=== PATIENT | male | born 1980 | race Caucasian/White ===

== ENCOUNTER 2020-07-02 00:45 | Inpatient (IN) | payer MEDICARE, MEDICAID ==
--- NOTE | 2020-07-02 01:32 | ED ---
General Adult HPI - General Chief complaint: Back Pain/Injury Stated complaint: Foot and back pain Time Seen by Provider: 07/02/20 01:00 Source: patient Mode of arrival: ambulatory Limitations: altered mental status (Disorganized thought processes) - History of Present Illness Initial comments: This patient is a 40-year-old man who initially states that he is here regarding back pain, but then has a very difficult time giving coherent history. He went on to describe taking insulation out of his home, also his travels across [place]. When specifically questioned about his back pain, he states that he has had years of back pain. He denies any recent injury. He states that naproxen usually helps him. He denies any difficulty with walking. Denies any loss of bowel or bladder function. The patient went on to describe history of psychiatric problems. He seems to be out of some of his medications. History is limited as the patient thought pr ocesses very disorganized -: unknown Location: back Radiation: non-radiation Improves with: none Worsens with: none Associated Symptoms: denies other symptoms - Related Data Previous Rx's Medication Instructions Recorded Nicotine 14Mg/24Hr Patch [Habitrol] 1 patch TRANSDERM DAILY #28 patch 07/05/20 risperiDONE [RisperDAL] 1 mg PO BID #60 tab 07/05/20 Allergies Allergy/AdvReac Type Severity Reaction Status Date / Time mirtazapine [From Remeron] Allergy Rash/Hives Verified 07/03/20 19:58 Review of Systems ROS Statement: Those systems with pertinent positive or pertinent negative responses have been documented in the HPI. ROS Other: All systems not noted in ROS Statement are negative. Constitutional: Denies: fever, weakness Eyes: Denies: vision change Respiratory: Denies: cough, dyspnea Cardiovascular: Denies: chest pain Gastrointestinal: Denies: abdominal pain, vomiting Musculoskeletal: Reports: as per HPI, back pain Skin: Denies: rash Neurological: Denies: headache Psychiatric: Denies: homicidal thoughts, suicidal thoughts Past Medical History Past Medical History: Unable to Obtain History of Any Multi-Drug Resistant Organisms: None Reported Past Surgical History: Appendectomy Past Psychological History: ADD/ADHD, PTSD Smoking Status: Current every day smoker Past Alcohol Use History: Occasional Past Drug Use History: None Reported - Past Family History family Family Medical History: No Reported History General Exam Limitations: no limitations General appearance: alert, in no apparent distress, other (Patient will mild tremor) Head exam: Present: atraumatic, normocephalic Eye exam: Present: normal appearance. Absent: scleral icterus, conjunctival injection Neck exam: Present: normal inspection, full ROM. Absent: tenderness Respiratory exam: Present: normal lung sounds bilaterally. Absent: respiratory distress, wheezes, rales, rhonchi, stridor Cardiovascular Exam: Present: regular rate, normal rhythm, normal heart sounds. Absent: systolic murmur, diastolic murmur, rubs, gallop GI/Abdominal exam: Present: soft. Absent: distended, tenderness, guarding, rebound, rigid Extremities exam: Present: normal inspection, normal capillary refill Back exam: Present: normal inspection. Absent: CVA tenderness (R), CVA tenderness (L), paraspinal tenderness, vertebral tenderness Neurological exam: Present: alert, oriented X3, CN II-XII intact. Absent: motor sensory deficit Psychiatric exam: Present: manic. Absent: depressed, agitated, anxious, homicidal ideation, suicidal ideation Skin exam: Present: warm, dry, intact, normal color. Absent: rash Course Vital Signs 07/02/20 00:53 Temperature 97.4 F L Pulse Rate 90 Respiratory 18 Rate Blood Pressure 164/100 O2 Sat by Pulse 98 Oximetry Medical Decision Making - Lab Data Result diagrams: 07/02/20 08:10 07/02/20 08:10 Lab Results 07/02/20 07/02/20 Range/Units 01:49 03:41 Urine Opiates Screen Not Detected (NotDetected) Ur Oxycodone Screen Not Detected (NotDetected) Urine Methadone Screen Not Detected (NotDetected) Ur Propoxyphene Screen Not Detected (NotDetected) Ur Barbiturates Screen Not Detected (NotDetected) U Tricyclic Antidepress Detected H (NotDetected) Ur Phencyclidine Scrn Not Detected (NotDetected) Ur Amphetamines Screen Detected H (NotDetected) U Methamphetamines Scrn Detected H (NotDetected) U Benzodiazepines Scrn Not Detected (NotDetected) Urine Cocaine Screen Detected H (NotDetected) U Marijuana (THC) Screen Detected H (NotDetected) Coronavirus (PCR) Not Detected (Not Detectd) Disposition Clinical Impression: 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
[2020-07-02 02:07] LABS: Amphetamine Screen,Urine Detected (NotDetected); Barbiturate Screen,Urine Not Detected (NotDetected); Benzodiazepines Screen,Urine Not Detected (NotDetected); Cocaine Screen,Urine Detected (NotDetected); Methadone Screen, Urine Not Detected (NotDetected); Opiate Screen,Urine Not Detected (NotDetected); Oxycodone Screen, Urine Not Detected (NotDetected); Phencyclidine Screen,Urine Not Detected (NotDetected); Tricyclic Antidepressant,Urine Detected (NotDetected); Urn Cannabinoid Scrn Detected (NotDetected)
[2020-07-02] MEDS ORDERED: MAGNESIUM HYDROXIDE 2,400 MG/10 ML CUP PO PRN (05:09)
[2020-07-02] MEDS ORDERED: MAG HYDROX/AL HYDROX/SIMETH 30 ML CUP PO PRN (05:09)
[2020-07-02] MEDS ORDERED: LORazepam 2 MG/ML INJ IM PRN (05:13)
[2020-07-02] MEDS ORDERED: haloperidoL 5 MG TAB PO PRN (05:13)
[2020-07-02] MEDS ORDERED: HALOPERIDOL LACTATE 5 MG/ML 1 ML VIAL IM PRN (05:13)
[2020-07-02 08:45] LABS: Basophils % (A) 0 %; Eosinophils # (A) 0.1 k/uL (0-0.7); Eosinophils % (A) 1 %; HCT 42.2 % (39.0-53.0); HGB 14.7 gm/dL (13.0-17.5); Lymphocytes % (A) 20 %; MCH 30.6 pg (25.0-35.0); MCHC 34.7 g/dL (31.0-37.0); MCV 88.2 fL (80.0-100.0); Mean Platelet Volume 7.5; Monocytes # (A) 0.9 k/uL (0-1.0); Monocytes % (A) 9 %; Neutrophils # (A) 6.8 k/uL (1.3-7.7); Neutrophils % (A) 67 %; Platelet Count 252 k/uL (150-450); RBC 4.78 m/uL (4.30-5.90); RDW 12.9 % (11.5-15.5); WBC 10.1 k/uL (3.8-10.6)
[2020-07-02 08:55] LABS: ALT 175 U/L (4-49); AST 96 U/L (17-59); African American GFR (CKD) >90 (>60 ml/min/1.73 sqM); Albumin 4.3 g/dL (3.5-5.0); Alkaline Phosphatase 83 U/L (38-126); Anion Gap 8 mmol/L; Blood Urea Nitrogen 12 mg/dL (9-20); Calcium 9.3 mg/dL (8.4-10.2); Carbon Dioxide 27 mmol/L (22-30); Chloride 101 mmol/L (98-107); Cholesterol 154 mg/dL (<200); Glucose 94 mg/dL (74-99); HDL Cholesterol 47 mg/dL (40-60); LDL Cholesterol,Calculated 98 mg/dL (0-99); Non-African American GFR(CKD) >90 (>60 ml/min/1.73 sqM); Potassium 3.5 mmol/L (3.5-5.1); Sodium 136 mmol/L (137-145); Total Bilirubin 0.9 mg/dL (0.2-1.3); Total Protein 7.5 g/dL (6.3-8.2); Triglycerides 46 mg/dL (<150)
[2020-07-02] MEDS: NICOTINE 14MG/24HR PATCH TRANSDERM SCH (09:01)
[2020-07-02] MEDS ORDERED: LORazepam 1 MG TAB PO PRN (11:06)
[2020-07-02] MEDS: ACETAMINOPHEN TAB 325 MG TAB PO PRN ×2 (11:12→17:00)
--- NOTE | 2020-07-02 11:14 | P.HP ---
Psychiatric H&P - . H&P Date: 07/02/20 History & Physical: Allergies Allergy/AdvReac Type Severity Reaction Status Date / Time No Known Allergies Allergy Verified 07/02/20 06:03 Vital Signs Temp 97.8 F 07/02/20 05:26 Pulse 91 07/02/20 05:26 Resp 18 07/02/20 05:26 BP 120/83 07/02/20 05:26 Pulse Ox 95 07/02/20 05:26 Intake & Output 07/01/20 07/02/20 07/02/20 18:59 06:59 18:59 Weight 86.9 kg Laboratory Last Values WBC 10.1 k/uL (3.8-10.6) 07/02/20 08:10 RBC 4.78 m/uL (4.30-5.90) 07/02/20 08:10 Hgb 14.7 gm/dL (13.0-17.5) 07/02/20 08:10 Hct 42.2 % (39.0-53.0) 07/02/20 08:10 MCV 88.2 fL (80.0-100.0) 07/02/20 08:10 MCH 30.6 pg (25.0-35.0) 07/02/20 08:10 MCHC 34.7 g/dL (31.0-37.0) 07/02/20 08:10 RDW 12.9 % (11.5-15.5) 07/02/20 08:10 Plt Count 252 k/uL (150-450) 07/02/20 08:10 MPV 7.5 07/02/20 08:10 Neutrophils % 67 % 07/02/20 08:10 Lymphocytes % 20 % 07/02/20 08:10 Monocytes % 9 % 07/02/20 08:10 Eosinophils % 1 % 07/02/20 08:10 Basophils % 0 % 07/02/20 08:10 Neutrophils # 6.8 k/uL (1.3-7.7) 07/02/20 08:10 Lymphocytes # 2.0 k/uL (1.0-4.8) 07/02/20 08:10 Monocytes # 0.9 k/uL (0-1.0) 07/02/20 08:10 Eosinophils # 0.1 k/uL (0-0.7) 07/02/20 08:10 Basophils # 0.0 k/uL (0-0.2) 07/02/20 08:10 Sodium 136 mmol/L (137-145) L 07/02/20 08:10 Potassium 3.5 mmol/L (3.5-5.1) 07/02/20 08:10 Chloride 101 mmol/L (98-107) 07/02/20 08:10 Carbon Dioxide 27 mmol/L (22-30) 07/02/20 08:10 Anion Gap 8 mmol/L 07/02/20 08:10 BUN 12 mg/dL (9-20) 07/02/20 08:10 Creatinine 0.66 mg/dL (0.66-1.25) 07/02/20 08:10 Est GFR (CKD-EPI)AfAm >90 (>60 ml/min/1.73 sqM) 07/02/20 08:10 Est GFR (CKD-EPI)NonAf >90 (>60 ml/min/1.73 sqM) 07/02/20 08:10 Glucose 94 mg/dL (74-99) 07/02/20 08:10 Calcium 9.3 mg/dL (8.4-10.2) 07/02/20 08:10 Total Bilirubin 0.9 mg/dL (0.2-1.3) 07/02/20 08:10 AST 96 U/L (17-59) H 07/02/20 08:10 ALT 175 U/L (4-49) H 07/02/20 08:10 Alkaline Phosphatase 83 U/L (38-126) 07/02/20 08:10 Total Protein 7.5 g/dL (6.3-8.2) 07/02/20 08:10 Albumin 4.3 g/dL (3.5-5.0) 07/02/20 08:10 Triglycerides 46 mg/dL (<150) 07/02/20 08:10 Cholesterol 154 mg/dL (<200) 07/02/20 08:10 LDL Cholesterol, Calc 98 mg/dL (0-99) 07/02/20 08:10 HDL Cholesterol 47 mg/dL (40-60) 07/02/20 08:10 TSH 2.410 mIU/L (0.465-4.680) 07/02/20 08:10 Urine Opiates Screen Not Detected (NotDetected) 07/02/20 01:49 Ur Oxycodone Screen Not Detected (NotDetected) 07/02/20 01:49 Urine Methadone Screen Not Detected (NotDetected) 07/02/20 01:49 Ur Propoxyphene Screen Not Detected (NotDetected) 07/02/20 01:49 Ur Barbiturates Screen Not Detected (NotDetected) 07/02/20 01:49 U Tricyclic Antidepress Detected (NotDetected) H 07/02/20 01:49 Ur Phencyclidine Scrn Not Detected (NotDetected) 07/02/20 01:49 Ur Amphetamines Screen Detected (NotDetected) H 07/02/20 01:49 U Methamphetamines Scrn Detected (NotDetected) H 07/02/20 01:49 U Benzodiazepines Scrn Not Detected (NotDetected) 07/02/20 01:49 Urine Cocaine Screen Detected (NotDetected) H 07/02/20 01:49 U Marijuana (THC) Screen Detected (NotDetected) H 07/02/20 01:49 Coronavirus (PCR) Not Detected (Not Detectd) 07/02/20 03:41 07/02/20 11:04 IDENTIFYING DATA: Patient is a 40-year-old male who presented with psychotic and bizarre behavior. HPI: Patient presented to the hospital on 07/02/2020 with a chief complaint of back pain but was presenting with gross disorganization, delusional thoughts, and bizarre behaviors. The patient has been noted to be wandering around the city making incoherent statements and acting bizarrely. The patient is unable to recall events leading to this hospitalization at this time. He states that he came to the hospital for back pain. He is a very poor historian and provides inconsistent and bizarre answers to questioning. When evaluated by recreational therapy, patient stated that his goals were "potato." On evaluation by this provider, the patient appears to be incoherent at times and does not answer any questions in a linear or logical fashion. He is currently denying any suicidal or homicidal ideation, intention, and/or plan. He denies any auditory or visual hallucinations. He is denying any paranoia or overt delusions. He is denying any significant history of bipolar disorder at this time. He reports no racing thoughts, mood swings, or increased goal-directed behavior. When inquiring about his substance abuse, the patient denies any illicit drug use despite his drug screens, and back positive for amphetamines, methamphetamines, cocaine, and marijuana. The patient is unable to provide any clear history for how this is possible. He does state that he drinks 1 L of hard liquor but does not recall when his last drink was. He does report 3 packs per day of tobacco use. PAST PSYCHIATRIC HISTORY: Patient states that he has a previous diagnosis of ADHD and as per chart review, PTSD. Patient is unable to recall any prior psychiatric medications. Patient denies any previous psychiatric hospitalizations. She does state that he follows up with a doctor in the outpatient setting but is unable to verbalize and name. Patient denies any history of suicide attempts in the past. PMH: The patient denies any past medical history. ALLERGIES: NO KNOWN DRUG ALLERGIES CHEMICAL DEPENDENCY HISTORY: The patient reports smoking 3 packs per day. He admits to alcohol use, and approximates one liter of alcohol but is unable to state how often he drinks. He denies any illicit drug use although his urinary drug screen came back positive for amphetamines, methamphetamines, marijuana, and cocaine. FAMILY PSYCHIATRIC/SUBSTANCE USE HISTORY: Unable to obtain SOCIAL HISTORY: The patient was able to provide . some social history but it should be noted that the patient does appear to be illogical at this time. The patient states that he lives in [place] and is attending college. 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 He states that he has 6 siblings and his mother and father are still alive and together. He reports living with his uncle. He does state that he is . He reports that he in 1993 which would make him 15 years old at the time. He denies any legal problems. MENTAL STATUS EXAM: General Appearance: Patient appears to be stated age appears intoxicated, but directable and attempts to cooperate. The patient is dressed in a hospital gown and appears disheveled. Behavior: Patient is seated without any agitated behavior. The patient is grossly disorganized and needs reorientation as to where to find his room. Speech: Patient's speech is slurred, incoherent at times, tangential. Mood/Affect: Patient reports their mood is "my back hurts." Affect is bizarre. Suicidality/Homicidality: Patient denies having any homicidal ideation intent or plan. Denies any suicidal ideations intent or plan Perceptions: Patient denies any visual hallucinations and denies any auditory hallucinations Though content/process: Grossly disorganized. Some bizarre thoughts. Memory and concentration: Grossly poor. Judgment and insight: poor STRENGTHS/WEAKNESSES: Unable to determine patient's strengths at this time. W eaknesses include substance abuse. INTELLECT: Unable to assess IMPRESSIONS: Acute psychosis - suspect secondary to substance abuse and intoxication Cannabis use disorder Methamphetamine abuse Cocaine abuse Nicotine dependence PLAN: -Patient is admitted under involuntary status to MHU for stabilization of psychiatric symptoms and safety. A second certification was completed and along with petition will be filed for court. -Medications : Will start patient on Risperdal 0.5 mg by mouth twice a day for psychosis -Ativan and Haldol PRN for agitation/aggression -Started thiamine, MVM for etoh use -CIWA protocol with Ativan PRN for ETOH withdrawal -Patient was counselled on substance abuse but denies he has substance use at this time. -Patient was informed of the risks, benefits and side effects of the medication and patient verbally consented to taking the medications. -Internal Medicine consult to perform medical evaluation and physical. -NRT - nicotine patch -SW on board for discharge planning. Encourage patient to participate in groups to work on coping skills. 07/02/20 11:14
[2020-07-02] MEDS: LORazepam 1 MG TAB PO PRN (12:04)
--- NOTE | 2020-07-02 20:02 | P.MDCNMH ---
History of Present Illness H&P Date: 07/02/20 Chief Complaint: medical eval 40 year old male with no reported past medical history patient unable to provide meaningful history , he mumbles most of the time, and tangential with his thoughts. he kept trying to interrupt interview as he is trying to go get snacks, or water. and I had to remind him that he can do that after the interview, he seemed disengaged and not interested in the interview he denies any medical concerns except for chronic low back pain of >2 years duration , non radiating pain , but he feels that sometimes he has difficulty walking , without giving further specific details when asked, again he seems unable to maintain his focus on one subject. he admits to polysubstance abuse, alcohol drinking on regular basis, and tobacco smoking he otherwise denies any suicidal or homicidal thoughts, he denies any fever, chills, URI symptoms , changes in his bowel habits, denies any GI symptoms, or urinary changes . Review of Systems Pertinent positives as noted in HPI. All other systems were reviewed and are neg ative Past Medical History Past Medical History: Unable to Obtain History of Any Multi-Drug Resistant Organisms: None Reported Past Surgical History: Appendectomy Past Psychological History: ADD/ADHD, PTSD Smoking Status: Current every day smoker Past Alcohol Use History: Occasional Past Drug Use History: None Reported - Past Family History family Family Medical History: No Reported History Medications and Allergies Allergies Allergy/AdvReac Type Severity Reaction Status Date / Time No Known Allergies Allergy Verified 07/02/20 06:03 Physical Exam Vitals: Vital Signs Temp Pulse Pulse Resp BP BP BP 07/02/20 16:58 116 H 126/63 07/02/20 12:03 124 H 110/57 07/02/20 11:15 97.7 F 127 H 18 95/58 07/02/20 05:26 97.8 F 91 18 120/83 07/02/20 00:53 97.4 F L 90 18 164/100 Pulse Ox 07/02/20 16:58 07/02/20 12:03 07/02/20 11:15 07/02/20 05:26 95 07/02/20 00:53 98 Intake and Output 07/02/20 07/02/20 07/02/20 06:59 14:59 22:59 Other: Weight 86.9 kg Constitutional: No acute distress, conversant, pleasant Eyes: Anicteric sclerae, moist conjunctiva, Pupils equal round reactive to light ENMT: NC/AT Oropharynx clear, no erythema, or exudates Neck: Supple, FROM, no masses, or JVD No carotid bruits No thyromegaly Lungs: Clear to auscultation Clear to percussion Normal respiratory effort, no accessory muscle use Cardiovascular: Heart regular in rate and rhythm, No murmurs, gallops, or rubs No peripheral edema Abdominal: Soft Nontender, no guarding, rebound or rigidity Abdomen moving with respiration Normoactive bowel sounds No hepatomegaly, No splenomegaly No palpable mass No abdominal wall hernia noted Skin: Normal temperature, tone, texture, turgor No induration No subcutaneous nodules No rash, lesions No ulcers Extremities: No digital cyanosis No clubbing Pedal pulses intact and symmetrical Radial pulses intact and symmetrical No calf tenderness Psychiatric: Alert and oriented to person, place and time Neuro Muscles Strength 5/5 in all 4 extremities Sensation to light touch grossly present throughout Cranial nerves II-XII grossly intact No focal sensory deficits Lymphatics: no palpable cervical or supraclavicular , or inguinal lymph nodes Cranial Nerve Examination - Cranial Nerves Cranial Nerve II- Optic: Intact Cranial Nerve III- Oculomotor: Intact Cranial Nerve IV- Trochlear: Intact Cranial Nerve V- Trigeminal: Intact Cranial Nerve - Abducens: Intact Cranial Nerve VII- Facial: Intact Cranial Nerve VIII- Auditory: Intact Cranial Nerve IX- Glossopharyngeal: Intact Cranial Nerve X- Vagus: Intact Cranial Nerve XI- Accessory: Intact Cranial Nerve XII- Hypoglossal: Intact Results CBC & Chem 7: 07/02/20 08:10 07/02/20 08:10 Labs: Abnormal Lab Results - Last 24 Hours (Table) 07/02/20 07/02/20 Range/Units 01:49 08:10 Sodium 136 L (137-145) mmol/L AST 96 H (17-59) U/L ALT 175 H (4-49) U/L U Tricyclic Antidepress Detected H (NotDetected) Ur Amphetamines Screen Detected H (NotDetected) U Methamphetamines Scrn Detected H (NotDetected) Urine Cocaine Screen Detected H (NotDetected) U Marijuana (THC) Screen Detected H (NotDetected) Assessment and Plan Assessment: acute psychosis bizarre behavior management per psych polysubstance abuse counseled regarding acceptable alcohol intake limits counseled to quit smoking and drug of abuse NRT offered chronic low back pain consider OP follow up with PCP pain control with NSAIDs labs reviewed Thank you for allowing us to participate in the care of this patient. We will follow peripherally. Do not hesitate to contact us with questions. Someone can be reached from the [facility] hospitalist group at all hours of the day at [phone].
[2020-07-02] MEDS: risperiDONE 0.5 MG TAB PO SCH (22:02)
[2020-07-03] MEDS: LORazepam 1 MG TAB PO PRN ×3 (01:14→17:53)
[2020-07-03 01:19] VITALS: RESP 16
[2020-07-03] MEDS: MULTIVITAMINS, THERA 1 EACH TAB PO SCH (08:04)
[2020-07-03] MEDS: FOLIC ACID 1 MG TAB PO SCH (08:04)
[2020-07-03] MEDS: NICOTINE 14MG/24HR PATCH TRANSDERM SCH (08:04)
[2020-07-03] MEDS: THIAMINE 100 MG TAB PO SCH (08:04)
[2020-07-03] MEDS: risperiDONE 0.5 MG TAB PO SCH (08:04)
--- NOTE | 2020-07-03 10:28 | P.PN ---
Progress Note - Text Progress Note Date: 07/03/20 Interval history: Patient was seen resting in bed and was directable and agreeable to speak with sheet writer. The patient is currently alert and oriented to person and time but was able to identify that he is in a psychiatric cabrera in the hospital but could not verbalize where. When confronted if he was using any substances, the patient acknowledges this today. He is currently not reporting any suicidal or homicidal ideation, intention, and/or plan. He is denying any auditory or visual hallucinations. The patient reports that he takes Seroquel at home. He has been adherent with his prescribed Risperdal and is not reporting any significant side effects at this time. Mental status exam: General Appearance: Patient appears to be stated age, dressed in hospital gown, and is resting in bed. Patient appears disheveled. Behavior: Patient is calmly lying in bed without any agitated behavior. Speech: Patient's speech is clear, coherent, and nonspontaneous, low in volume. Mood/Affect: The patient's mood is described as okay. Affect is somnolent and blunted. Suicidality/Homicidality: Patient denies having any homicidal ideation intent or plan. Denies any suicidal ideations intent or plan Perceptions: Patient denies any visual hallucinations and denies any auditory hallucinations Though content/process: No delusional thought content is endorse today. Thought process appears to be linear and logical in short conversation. Memory and concentration: Patient is alert and oriented to person and time. Concentration appears improved. Judgment and insight: poor Assessment/Plan: Continue with current diagnosis. Patient continues to meet criteria for inpatient psychiatric admission for symptom stabilization and safety. Patient will be maintained on current psychotropic medication regimen with the exception of increasing his Risperdal to 1 mg by mouth twice a day. Monitor for medication compliance and for any psychotropic medication side effects. Will continue to monitor ongoing response to treatment. Encouraged participation in milieu.
[2020-07-03] MEDS: ACETAMINOPHEN TAB 325 MG TAB PO PRN (12:04)
[2020-07-03] MEDS: risperiDONE 1 MG TAB PO SCH (20:01)
[2020-07-04 06:39] VITALS: BP 134/60; PULSE 70
[2020-07-04] MEDS: NICOTINE 14MG/24HR PATCH TRANSDERM SCH (08:02)
[2020-07-04] MEDS: FOLIC ACID 1 MG TAB PO SCH (08:03)
[2020-07-04] MEDS: MULTIVITAMINS, THERA 1 EACH TAB PO SCH (08:03)
[2020-07-04] MEDS: THIAMINE 100 MG TAB PO SCH (08:03)
[2020-07-04] MEDS: risperiDONE 1 MG TAB PO SCH ×2 (08:49→20:32)
--- NOTE | 2020-07-04 11:46 | P.PN ---
Progress Note - Text Progress Note Date: 07/04/20 Clinical Problems: Substance induced psychotic disorder, methamphetamine use disorder unspecified, cocaine use disorder unspecified, marijuana use disorder unspecified, history of ADHD Interim history: I reviewed the medical record, interviewed the patient and discussed his treatment and treatment plan during team meeting. He is a 40-year-old male admitted to the psychiatric unit involuntarily. According to the record the police brought him [facility] the [facility] in a delusional and disorganized state. He is a resident of [facility]. He alleged came to [place] to "alliance party" with some friends last week. He admits to using methamphetamine, cocaine and smoking marijuana. He was unable to explain how he came to the hospital. 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 This is his third psychiatric hospitalization. He alleged that he was admitted to a psychiatric facility in [place] when he was 9 years old for "ADHD". He was admitted to a psychiatric facility in [place] 6 years ago and possibly transferred to a substance use rehabilitation program for the treatment of methamphetamine use disorder. During our interview he perseverated about discharge and appeared to be under the assumption that I am responsible for her for the deferral hearing. Mental status exam: He presented as a disheveled and dysarthric 40-year-old male who looked younger than his stated age. He made eye contact and appeared to attend to the interview. He had a blunted facial expression. He has psychomotor retardation but no abnormal involuntary movements. His speech was spontaneous and so dysarthric he was difficult to understand and follow. His affect was blunted but stable. He did not express suicidal ideation, wishes or homicidal ideation. He denied feeling hopeless, helpless or worthless. He ruminated about this hospitalization and discharge. Did not express ideas reference, paranoid ideation or delusions. His thinking was very concrete but his associations were goal-directed. He denied hallucinations did not appear to be responding to internal stimuli. Assessment: He presented to [facility] with what appears to be a methamphetamine induced psychotic disorder. He is less disorganized paranoid than on admission. He gives a history of prior psychiatric hospitalizations 1 infectious related to methamphetamine use. Plan: Continue inpatient treatment. Safety precautions. Deferral hearing pending. Continue risperidone 1 mg twice a day for treatment of psychosis. Nayanl and/or Ativan when necessary for agitation aggression or acute psychosis. Encourage participation in a substance abuse treatment program after discharge. Encourage participation in therapeutic groups and activities. Evaluate clinical status response to treatment daily basis.
[2020-07-04 14:01] VITALS: TEMP 97.6
[2020-07-04] MEDS: LORazepam 1 MG TAB PO PRN ×2 (16:45→22:59)
[2020-07-05] MEDS: NICOTINE 14MG/24HR PATCH TRANSDERM SCH (08:13)
[2020-07-05] MEDS: MULTIVITAMINS, THERA 1 EACH TAB PO SCH (08:14)
[2020-07-05] MEDS: risperiDONE 1 MG TAB PO SCH (08:14)
[2020-07-05] MEDS: THIAMINE 100 MG TAB PO SCH (08:14)
[2020-07-05] MEDS: FOLIC ACID 1 MG TAB PO SCH (08:14)
[2020-07-05] MEDS: LORazepam 1 MG TAB PO PRN (08:16)
--- NOTE | 2020-07-05 11:36 | P.DS ---
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 The local police brought him to the ED and completed a petition describing bizarre behavior, incoherence and gross disorganization. According to information he was wandering around the [facility] hearing statements and acting bizarrely. At time of admission he was a very poor historian and provided inconsistent and bizarre answers to questions. His UDS was positive for tricyclic antidepressants, amphetamines, methamphetamines, cocaine and marijuana. The change that he came to [place] to visit with some friends and "constitution party" admits to using methamphetamine but denied use of other drugs. He gave inconsistent information throughout this brief hospitalization. Eventually, he revealed that he lives in a group homehad several psychiatric hospitalizations. He was unclear when the recent hospitalization occurred but he alleged that in April 2020 the psychiatric unit at [facility] refe rred him to the mcc. According to the physician management nurse he must have had multiple admissions because he has used his lifetime mental health's inpatient services benefits. HOSPITAL COURSE: We admitted him to the psychiatric unit under the care of this publicity writer. We provided a copy is a biopsychosocial assessment. The business solutions consultant human services care specialist completed initial physical exam and medical history and diagnosed chronic low back pain for which he recommended NSAIDs. We treated his psychosis with risperidone 1 mg by mouth twice a day. He posed no management problem and had no episodes of behavioral dyscontrol. The psychosis rapidly improve with abstinence from methamphetamine. He became coherent explained to live in a mcc and gave permission for the pediatric social worker to speak with the mcc staff. He intermittently attended therapeutic groups and activities. MENTAL STATUS ON DISCHARGE: He presented as a somewhat disheveled 40-year-old male who looked younger than his stated age. He made eye contact and appeared to attend to the interview. He had a blunted facial expression. He has psychomotor retardation but no abnormal involuntary movements. His speech was spontaneous. His affect was blunted but stable. He did not express suicidal ideation, wishes or homicidal ideation. He denied feeling hopeless, helpless or worthless. He did not express ideas reference, paranoid ideation or delusions. His thinking was very concrete but his associations were goal-directed. He denied hallucinations and did not appear to be responding to internal stimuli. DISPOSITION: He discharged back to the mcc. His only discharge medications risperidone 1 mg by mouth twice a day. He is a follow-up appointment at [facility] on 07/14/2020 and 9 AM. Patient Condition at Discharge: Stable Plan - Discharge Summary New Discharge Prescriptions: New Nicotine 14Mg/24Hr Patch [Habitrol] 1 patch TRANSDERM DAILY #28 patch risperiDONE [RisperDAL] 1 mg PO BID #60 tab Discontinued QUEtiapine [SEROquel] 100 mg PO DAILY QUEtiapine FUMARATE [SEROquel] 300 mg PO HS Sertraline [Zoloft] 50 mg PO DAILY Discharge Medication List Nicotine 14Mg/24Hr Patch [Habitrol] 1 patch TRANSDERM DAILY #28 patch 07/05/20 [Rx] risperiDONE [RisperDAL] 1 mg PO BID #60 tab 07/05/20 [Rx] Follow up Appointment(s)/Referral(s): Nonstaff,Physician [Primary Care Provider] - 1-2 days Activity/Diet/Wound Care/Special Instructions: Activity and diet as tolerated. Avoid the use of street drugs and alcohol. Take all medications as prescribed. When you are in need of refills on your medications please contact your medical provider and/or outpatient psychiatrist to have this done. Please go to scheduled outpatient appointment for aftercare treatment. If symptoms return or become worse, call the crisis line at and/or go to the nearest emergency room for evaluation. Discharge Disposition: HOME SELF-CARE
== END 2020-07-05 12:32 | disposition home or self-care (01) | DRG 897 ==
LOC: EC 00:45 → 3MHU 05:03
PROVIDERS: ADMIT Psychiatry & Neurology Psychiatry; ATTEND Psychiatry & Neurology Psychiatry
DX: F19.959 Other psychoactive substance use, unspecified with psychoactive substance-induced psychotic disorder, unspecified (principal); F14.20 Cocaine dependence, uncomplicated; F15.20 Other stimulant dependence, uncomplicated; F12.20 Cannabis dependence, uncomplicated; F17.210 Nicotine dependence, cigarettes, uncomplicated; F43.10 Post-traumatic stress disorder, unspecified; M54.5 Low back pain; G89.29 Other chronic pain; Z79.899 Other long term (current) drug therapy; Z90.49 Acquired absence of other specified parts of digestive tract; Z98.890 Other specified postprocedural states
CPT/HCPCS: 80053; 80061; 80306; 82075; 83036; 84443; 85025; 87635; 99284